=== PATIENT | female | born 1965 ===

== ENCOUNTER 2018-04-03 12:20 | Day surgery (SDC) | payer OTHER, MEDICAID ==
[~2018-04-03 12:20] MED LIST: Iohexol 240 (50 ml) ONE
[2018-04-03 12:24] VITALS: BMI 32.5
--- NOTE | 2018-04-03 15:00 | CT ---
Date of service: 04/03/2018 PROCEDURE: CT Lumbar Spine postmyelogram HISTORY: PARESTHESIA COMPARISON: None available. TECHNIQUE: Axial computed tomography images were obtained of the lumbar spine without the use of intravenous contrast. Coronal and sagittal reformatted images were created and reviewed. The study was performed immediately following a lumbar myelogram. The study was performed from T8 through S1 Radiation dose: Total exam DLP = 1787.69 mGy-cm. This CT exam was performed using one or more of the following dose reduction techniques: Automated exposure control, adjustment of the mA and/or kV according to patient size, and/or use of iterative reconstruction technique. FINDINGS: VERTEBRAE: Unremarkable. No fracture. Normal alignment. DISCS/SPINAL CANAL/NEURAL FORAMINA: L1-2: Unremarkable. L2-3: Unremarkable. L3-4: Unremarkable. L4-5: Unremarkable. L5-S1: Unremarkable. PARASPINAL SOFT TISSUES: Unremarkable. OTHER FINDINGS: The conus is normal. Findings were discussed with Dr. Tapia at 2:45 p.m. IMPRESSION: Unremarkable postmyelogram CT of Lumbar Spine.
--- NOTE | 2018-04-03 15:09 | RAD ---
Date of service: 04/03/2018 PROCEDURE: Lumbosacral myelogram HISTORY: PARETHESIA COMPARISON: TECHNIQUE: Informed consent was obtained. The patient was sedated by anesthesia. The lower back was sterilely cleansed and draped. 1 percent lidocaine was used as local anesthetic. Lumbar puncture was made at the L3-4 level using a left-sided paraspinal approach. A 22 gauge needle was used. Lumbar puncture was successful on the 1st attempt. 12 cc of Omnipaque 240 were injected under fluoro. FINDINGS: AP and oblique images were performed showing no evidence of nerve root compression or compression of the thecal sac. The patient was immediately sent down the [facility] CT for follow-up scanning. This CT was unremarkable IMPRESSION: Normal study with no evidence of nerve root compression
[2018-04-03] MEDS ORDERED: HYDROmorphone 0.5 mg/0.5 ml ISec IVP PRN (15:18)
[2018-04-03] MEDS ORDERED: Lactated Ringer's 1,000 ML IV SCH (15:30)
[2018-04-03] MEDS ORDERED: HYDROmorphone 0.5 mg/0.5 ml ISec ONE ×2 (15:41→16:00)
[2018-04-03] MEDS ORDERED: HYDROmorphone 0.5 mg/0.5 ml ISec IVP ONE ×2 (15:42→16:00)
[2018-04-03 17:51] VITALS: BP 140/92; PULSE 90; RESP 20; TEMP 98.2; O2SAT 98
== END 2018-04-03 17:30 | disposition short-term general hospital (02) ==
LOC: SDSVAS 12:20
PROVIDERS: ATTEND Orthopaedic Surgery Orthopaedic Surgery of the Spine
DX: R20.2 Paresthesia of skin (principal)
CPT/HCPCS: 72131; 72265; J1170; J7120 ×2; Q9966